=== PATIENT | female | born 1960 | race Caucasian/White ===

== ENCOUNTER 2017-09-12 09:08 | Emergency (ER) | payer BC ==
[~2017-09-12] VITALS: Ht 175.3 cm; Wt 104.1 kg
[~2017-09-12 09:08] MED LIST: MAGN400T6 PO; POTA20PA3 PO
[2017-09-12 09:31] LABS: BASOPHILS % (AUTO) 0.6 % (0-1); EOSINOPHILS # (AUTO) 0.2 X10'3 (0-0.9); EOSINOPHILS % (AUTO) 2.3 % (0-6); HEMATOCRIT 40.9 % (35.0-45.0); HEMOGLOBIN 13.9 g/dl (12.0-16.0); LYMPHOCYTES % (AUTO) 27.6 % (21-51); MEAN CORPUSCULAR HEMOGLOBIN 31.5 PG (27.0-31.0); MEAN CORPUSCULAR HGB CONC 34.1 % (33.0-36.5); MEAN CORPUSCULAR VOLUME 92.5 FL (78-98); MEAN PLATELET VOLUME 8.4 FL (7.4-10.4); MONOCYTES # (AUTO) 0.4 X10'3 (0-0.9); NEUTROPHILS # (AUTO) 4.6 X10'3 (1.8-7.7); NEUTROPHILS % (AUTO) 64.5 % (42-75); PLATELET COUNT 210 X10'3 (140-440); RED BLOOD COUNT 4.42 X10'6 (4.20-5.60); RED CELL DISTRIBUTION WIDTH 13.4 % (11.5-14.5); WHITE BLOOD COUNT 7.2 X10'3 (4.5-11.0)
[2017-09-12 09:41] LABS: PARTIAL THROMBOPLASTIN TIME 25 SECONDS (22-32)
[2017-09-12 09:46] LABS: ALANINE AMINOTRANSFERASE 38 U/L (12-78); ALBUMIN 3.6 G/DL (3.4-5.0); ALBUMIN/GLOBULIN RATIO 0.9 (1.1-1.5); ALKALINE PHOSPHATASE 63 IU/L (46-116); ANION GAP 13 (8-16); ASPARTATE AMINO TRANSFERASE 20 U/L (10-37); BILIRUBIN,TOTAL 0.7 MG/DL (0.1-1.0); BLOOD UREA NITROGEN 13 MG/DL (7-18); BUN/CREATININE RATIO 18.8 (6.6-38.0); CALCIUM 8.9 MG/DL (8.5-10.1); CHLORIDE 101 MMOL/L (99-107); CREATININE 0.69 MG/DL (0.40-0.90); GLUCOSE 103 MG/DL (70-104); POTASSIUM 3.1 MMOL/L (3.5-5.1); SODIUM 142 MMOL/L (135-145); TOTAL CARBON DIOXIDE 28.5 MMOL/L (24-32); TOTAL PROTEIN 7.5 G/DL (6.4-8.2); eGFR 88 ML/MIN
[2017-09-12] MEDS ORDERED: potassium Cl 20 mEq SR tablet PO STA (11:29)
[2017-09-12 11:53] VITALS: BP 165/90
== END 2017-09-12 11:54 | disposition home or self-care (01) ==
LOC: ER 09:09
DX: R07.9 Chest pain, unspecified (principal); M54.2 Cervicalgia; F41.9 Anxiety disorder, unspecified; R06.02 Shortness of breath; I10 Essential (primary) hypertension; Z90.710 Acquired absence of both cervix and uterus; Z96.651 Presence of right artificial knee joint; Z98.890 Other specified postprocedural states; Z88.2 Allergy status to sulfonamides; Z85.41 Personal history of malignant neoplasm of cervix uteri; Z79.899 Other long term (current) drug therapy
CPT/HCPCS: 36415; 71045; 80053; 84484; 85025; 85610; 85730; 93005; 99285

== ENCOUNTER 2019-05-13 14:39 | Emergency (ER) | payer BC ==
[~2019-05-13] VITALS: Ht 175.3 cm; Wt 105.0 kg
[~2019-05-13 14:39] MED LIST changes: +MAGN400T28 PO; -MAGN400T6 PO; -POTA20PA3 PO; +POTA20PA40 PO
--- NOTE | 2019-05-13 15:39 | NUR ---
TWO IV ACCESS ATTEMPTS, NO IV AT THIS TIME. LABS DRAWN AND PT TAKEN OUT TO CT VIA W/C BY TECH.
[2019-05-13 15:54] LABS: BASOPHILS # (AUTO) 0.1 X10'3 (0-0.2); BASOPHILS % (AUTO) 0.7 % (0-1); EOSINOPHILS # (AUTO) 0.1 X10'3 (0-0.9); EOSINOPHILS % (AUTO) 0.9 % (0-6); HEMATOCRIT 41.7 % (35.0-45.0); HEMOGLOBIN 14.3 g/dl (12.0-16.0); LYMPHOCYTES # (AUTO) 2.5 X10'3 (1.1-4.8); LYMPHOCYTES % (AUTO) 29.9 % (21-51); MEAN CORPUSCULAR HEMOGLOBIN 31.5 PG (27.0-31.0); MEAN CORPUSCULAR HGB CONC 34.3 g/dL (33.0-36.5); MEAN PLATELET VOLUME 8.5 FL (7.4-10.4); MONOCYTES # (AUTO) 0.6 X10'3 (0-0.9); MONOCYTES % (AUTO) 6.6 % (2-12); NEUTROPHILS # (AUTO) 5.3 X10'3 (1.8-7.7); NEUTROPHILS % (AUTO) 61.9 % (42-75); PLATELET COUNT 227 X10'3 (140-440); RED BLOOD COUNT 4.54 X10'6 (4.20-5.60); RED CELL DISTRIBUTION WIDTH 13.8 % (11.5-14.5); WHITE BLOOD COUNT 8.5 X10'3 (4.5-11.0)
[2019-05-13 15:59] LABS: PARTIAL THROMBOPLASTIN TIME 26 SECONDS (22-32)
[2019-05-13 16:01] LABS: ALANINE AMINOTRANSFERASE 54 U/L (12-78); ALBUMIN 3.8 G/DL (3.4-5.0); ALKALINE PHOSPHATASE 64 IU/L (46-116); ANION GAP 9 (8-16); ASPARTATE AMINO TRANSFERASE 30 U/L (10-37); BILIRUBIN,TOTAL 0.4 MG/DL (0.1-1.0); BLOOD UREA NITROGEN 10 MG/DL (7-18); BUN/CREATININE RATIO 15.6 (6.6-38.0); CHLORIDE 102 MMOL/L (99-107); CREATININE 0.64 MG/DL (0.40-0.90); GLUCOSE 96 MG/DL (70-104); LIPASE 109 U/L (73-393); POTASSIUM 3.2 MMOL/L (3.5-5.1); SODIUM 139 MMOL/L (135-145); TOTAL CARBON DIOXIDE 28.2 MMOL/L (24-32); TOTAL PROTEIN 7.6 G/DL (6.4-8.2); eGFR > 90 ML/MIN
[2019-05-13 16:11] VITALS: BP 135/81
[2019-05-13 16:21] LABS: CLARITY,URINE CLEAR (Clear); COLOR,URINE YELLOW (Yellow); GLUCOSE, URINE NEGATIVE (Neg); KETONES,URINE NEGATIVE (Neg); LEUKOCYTE ESTERASE ,URINE NEGATIVE (Neg); NITRITES, URINE NEGATIVE (Neg); OCCULT BLOOD,URINE NEGATIVE (Neg); PROTEIN,URINE NEGATIVE (Neg); UROBILINOGEN,URINE 0.2 E.U/dL (0.2-1.0)
--- NOTE | 2019-05-13 16:21 | NUR ---
PT BACK FROM CT. URINE SAMPLE COLLECTED. PROVIDER IN ROOM FOR RECTAL EXAM.
[2019-05-13 16:24] LABS: UA COLLECTION TYPE CLN CATCH MIDSTREAM
== END 2019-05-13 17:07 | disposition home or self-care (01) ==
LOC: ER 14:40
DX: K64.9 Unspecified hemorrhoids (principal); I10 Essential (primary) hypertension; F41.9 Anxiety disorder, unspecified; Z98.890 Other specified postprocedural states; Z90.710 Acquired absence of both cervix and uterus; Z60.2 Problems related to living alone; Z88.2 Allergy status to sulfonamides; Z79.899 Other long term (current) drug therapy
CPT/HCPCS: 36415; 74176; 80053; 81003; 83690; 85025; 85610; 85730; 99284

== ENCOUNTER 2021-11-01 09:53 | Day surgery (SDC) | payer OTHER ==
[2021-10-27 16:11] LABS: BASOPHILS # (AUTO) 0.1 X10'3 (0-0.2); BASOPHILS % (AUTO) 0.7 % (0-1); EOSINOPHILS # (AUTO) 0.2 X10'3 (0-0.9); EOSINOPHILS % (AUTO) 1.9 % (0-6); HEMATOCRIT 39.2 % (35.0-45.0); HEMOGLOBIN 13.3 g/dl (12.0-16.0); LYMPHOCYTES # (AUTO) 2.8 X10'3 (1.1-4.8); LYMPHOCYTES % (AUTO) 32.3 % (21-51); MEAN CORPUSCULAR HEMOGLOBIN 30.8 PG (27.0-31.0); MEAN CORPUSCULAR HGB CONC 33.9 g/dL (33.0-36.5); MEAN CORPUSCULAR VOLUME 90.8 FL (78-98); MEAN PLATELET VOLUME 8.8 FL (7.4-10.4); MONOCYTES # (AUTO) 0.6 X10'3 (0-0.9); MONOCYTES % (AUTO) 6.5 % (2-12); NEUTROPHILS # (AUTO) 5.1 X10'3 (1.8-7.7); NEUTROPHILS % (AUTO) 58.6 % (42-75); PLATELET COUNT 242 X10'3 (140-440); RED BLOOD COUNT 4.32 X10'6 (4.20-5.60); RED CELL DISTRIBUTION WIDTH 13.6 % (11.5-14.5); WHITE BLOOD COUNT 8.8 X10'3 (4.5-11.0)
[2021-10-27 16:24] LABS: APTT 25 SECONDS (22-32)
[2021-10-27 16:26] LABS: ALANINE AMINOTRANSFERASE 28 U/L (12-78); ALBUMIN 3.4 G/DL (3.4-5.0); ALBUMIN/GLOBULIN RATIO 0.9 (1.1-1.5); ALKALINE PHOSPHATASE 60 IU/L (46-116); ANION GAP 8 (8-16); ASPARTATE AMINO TRANSFERASE 15 U/L (10-37); BILIRUBIN,TOTAL 0.5 MG/DL (0.1-1.0); BLOOD UREA NITROGEN 12 MG/DL (7-18); BUN/CREATININE RATIO 18.8 (6.6-38.0); CALCIUM 8.9 MG/DL (8.5-10.1); CHLORIDE 102 MMOL/L (99-107); CREATININE 0.64 MG/DL (0.40-0.90); GLUCOSE 108 MG/DL (70-104); SODIUM 138 MMOL/L (135-145); TOTAL CARBON DIOXIDE 28.4 MMOL/L (24-32); TOTAL PROTEIN 7.2 G/DL (6.4-8.2); eGFR > 90 ML/MIN
[2021-11-01] VITALS (11 sets, daily range): BP systolic 96–128; BP diastolic 60–84
[~2021-11-01] VITALS: Ht 176.5 cm; Wt 109.0 kg
--- NOTE | 2021-11-01 08:14 | NUR ---
Left a message with Dr. Willson's MA to return call, regarding potassium draw. Lab contacted MD office on 10/27/21. Waiting for return call.
[~2021-11-01 09:53] MED LIST changes: -MAGN400T28 PO; +MAGN400T56 PO
[2021-11-01] MEDS ORDERED: diphenhydrAMINE 25mg capsule PO PRN (10:30)
[2021-11-01] MEDS ORDERED: LORazepam 0.5 MG tablet PO PRN (10:30)
[2021-11-01] MEDS ORDERED: normal saline 1,000 ML IV SCH (10:30)
[2021-11-01] MEDS ORDERED: nitroGLYCERIN 0.4mg SUBLingual tab SL PRN ×2 (10:30→16:50)
[2021-11-01] MEDS ORDERED: ATEN1TAB3 PO (10:35)
[2021-11-01] MEDS ORDERED: ATOR10TA70 PO (10:35)
[2021-11-01] MEDS ORDERED: ALBU8HFA (10:35)
[2021-11-01] MEDS ORDERED: BUDE10.2 PO (10:35)
[2021-11-01] MEDS ORDERED: POTA-207 PO (10:35)
[2021-11-01] MEDS ORDERED: SERT-433 PO (10:35)
[2021-11-01] MEDS ORDERED: Omega 3 PO (10:37)
[2021-11-01] MEDS ORDERED: ASPI-1071 PO (10:37)
[2021-11-01 11:28] LABS: ALANINE AMINOTRANSFERASE 28 U/L (12-78); ALBUMIN 3.3 G/DL (3.4-5.0); ALBUMIN/GLOBULIN RATIO 0.9 (1.1-1.5); ALKALINE PHOSPHATASE 58 IU/L (46-116); ANION GAP 10 (8-16); ASPARTATE AMINO TRANSFERASE 17 U/L (10-37); BILIRUBIN,TOTAL 0.6 MG/DL (0.1-1.0); BLOOD UREA NITROGEN 10 MG/DL (7-18); BUN/CREATININE RATIO 17.2 (6.6-38.0); CALCIUM 8.7 MG/DL (8.5-10.1); CHLORIDE 103 MMOL/L (99-107); CREATININE 0.58 MG/DL (0.40-0.90); GLUCOSE 98 MG/DL (70-104); POTASSIUM 3.2 MMOL/L (3.5-5.1); SODIUM 140 MMOL/L (135-145); TOTAL CARBON DIOXIDE 26.8 MMOL/L (24-32); eGFR > 90 ML/MIN
[2021-11-01] MEDS ORDERED: potassium CL 10mEq/100ml bag 100 ML IV PRN (11:45)
[2021-11-01] MEDS ORDERED: magnesium 2GM in 50ml NS 50 ML IV PRN (11:45)
[2021-11-01] MEDS ORDERED: POTASSIUM BICARB 20meq eff tab 20 MEQ TABLET.EFF PO PRN (11:45)
[2021-11-01] MEDS ORDERED: magnesium Cl slow-release 64mg tablet PO PRN (11:45)
[2021-11-01] MEDS ORDERED: magnesium 4gm in 100ml NS 100 ML IV PRN (11:45)
[2021-11-01] MEDS: POTASSIUM BICARB 20meq eff tab 20 MEQ TABLET.EFF PO PRN ×2 (12:48→16:55)
[2021-11-01] MEDS ORDERED: fentaNYL/PF 50MCG/1 ML 2ML syringe ONE (12:59)
[2021-11-01] MEDS ORDERED: midazolam 1 mg/ML 2ml injection ONE (12:59)
[2021-11-01] MEDS ORDERED: iohexol 350MG/ML 100ml bottle IV ONE ×2 (12:59→13:36)
[2021-11-01] MEDS ORDERED: LIDOcaine 1% 30ml preserv. free vial ONE (13:00)
[2021-11-01] MEDS ORDERED: HYDROmorphone 1 mg/ml syringe ONE (13:56)
--- NOTE | 2021-11-01 16:20 | NUR ---
Pt ate 100% of lunch tray. 250ml oral fluid intake. Pt's fluid infusing as ordered.
[2021-11-01 16:42] LABS: MAGNESIUM 1.6 MG/DL (1.5-2.4)
[2021-11-01] MEDS ORDERED: proCHLORperazine 10 MG/2 ml inj IV PRN (16:50)
[2021-11-01] MEDS ORDERED: ondansetron/PF 4mg/2ml inj IV PRN (16:50)
[2021-11-01] MEDS ORDERED: HYDROmorphone 1 mg/ml syringe IV PRN (16:50)
[2021-11-01] MEDS ORDERED: OXAZEpam 15mg capsule PO PRN (16:50)
[2021-11-01] MEDS ORDERED: HYDROcodone/acetaminophen 10/325mg tab PO PRN (16:50)
[2021-11-01] MEDS ORDERED: normal saline 1000ml 1,000 ML IV SCH (16:50)
[2021-11-01] MEDS ORDERED: HYDROcodone/acetaminophen 5mg/325mg tablet PO PRN (16:50)
--- NOTE | 2021-11-01 17:23 | NUR ---
Problems reprioritized. Patient report given, questions answered & plan of care reviewed with Kiki SAMANIEGO.
--- NOTE | 2021-11-01 19:15 | NUR ---
Dressing was changed and patient was sat up. 10 minutes later the dressing was 100% saturated with blood. Removed dressing, applied manual pressure for 3 mins. Bleeding stopped and reapplied new dressing.
[2021-11-01] MEDS ORDERED: K and/or MAG REPLACEMENT MC SCH (20:00)
== END 2021-11-01 20:00 | disposition home or self-care (01) ==
LOC: SSTAY O 09:53
PROVIDERS: ATTEND Internal Medicine Cardiovascular Disease
DX: R94.39 Abnormal result of other cardiovascular function study (principal); I25.10 Atherosclerotic heart disease of native coronary artery without angina pectoris; I10 Essential (primary) hypertension; J44.9 Chronic obstructive pulmonary disease, unspecified; E78.5 Hyperlipidemia, unspecified; E87.6 Hypokalemia; Z72.89 Other problems related to lifestyle; F17.210 Nicotine dependence, cigarettes, uncomplicated; Z79.899 Other long term (current) drug therapy; Z79.01 Long term (current) use of anticoagulants; Z88.2 Allergy status to sulfonamides; Z91.040 Latex allergy status; Z90.710 Acquired absence of both cervix and uterus; Z98.890 Other specified postprocedural states; Z85.43 Personal history of malignant neoplasm of ovary
CPT/HCPCS: 36415; 71046; 80053; 83735; 85025; 85610; 85730; 93005; 93458; 99152; 99153; C1760; C1769; J1170; J1644; J2250; J3010; J3490; J7030; Q0163; Q9967; A4620; A6258; A6402

== ENCOUNTER → 2022-08-21 | Outpatient (CLI) | payer OTHER ==
[~2022-08-21] MED LIST changes: +ALBU8HFA; +ASPI-1071 PO; +ATEN1TAB3 PO; +ATOR10TA70 PO; +BUDE10.2 PO; +CRANBERRY; +ECHINACEA; +LUTE1CAP5 PO; -MAGN400T56 PO; +OMEP40CA21 PO; +Omega 3 PO; +POTA-207 PO; -POTA20PA40 PO; +PROBIOTIC; +SERT-433 PO; +TUMERIC; +VITAMIN C; +VITAMIN D 3; +[UNRECOGNIZED DRUG - OTHER]
[2022-08-21 14:53] LABS: BASOPHILS # (AUTO) 0.1 X10'3 (0-0.2); BASOPHILS % (AUTO) 0.7 % (0-1); EOSINOPHILS # (AUTO) 0.2 X10'3 (0-0.9); EOSINOPHILS % (AUTO) 1.9 % (0-6); LYMPHOCYTES % (AUTO) 36.2 % (21-51); MEAN CORPUSCULAR HGB CONC 34.1 g/dL (33.0-36.5); MEAN PLATELET VOLUME 8.2 FL (7.4-10.4); MONOCYTES # (AUTO) 0.5 X10'3 (0-0.9); MONOCYTES % (AUTO) 6.5 % (2-12); NEUTROPHILS # (AUTO) 4.5 X10'3 (1.8-7.7); NEUTROPHILS % (AUTO) 54.7 % (42-75); PRE OP HEMATOCRIT 40.5 % (35.0-45.0); PRE OP HEMOGLOBIN 13.8 g/dL (12.0-16.0); PRE OP PLATELET COUNT 226 X10'3 (140-440); RED BLOOD COUNT 4.31 X10'6 (4.20-5.60); RED CELL DISTRIBUTION WIDTH 13.2 % (11.5-14.5)
[2022-08-21 15:08] LABS: ALBUMIN 3.3 G/DL (3.4-5.0); ALBUMIN/GLOBULIN RATIO 0.9 (1.1-1.5); ALKALINE PHOSPHATASE 64 IU/L (46-116); BLOOD UREA NITROGEN 17 MG/DL (7-18); BUN/CREATININE RATIO 33.3 (10.0-20.0); CALCIUM 8.9 MG/DL (8.5-10.1); CHLORIDE 102 MMOL/L (99-107); CREATININE 0.51 MG/DL (0.40-0.90); PRE OP ALT 22 U/L (30-65); PRE OP ANION GAP 8 (8-16); PRE OP AST 17 U/L (10-37); PRE OP BILIRUB, TOTAL 0.3 MG/DL (0.0-1.0); PRE OP GLUCOSE 96 MG/DL (70-104); PRE OP POTASSIUM 3.5 MMOL/L (3.4-5.1); PRE OP SODIUM 139 MMOL/L (135-145); TOTAL CARBON DIOXIDE 28.8 MMOL/L (24-32); TOTAL PROTEIN 7.1 G/DL (6.4-8.2); eGFR > 90 ML/MIN
== END | disposition home or self-care (01) ==
LOC: LAB 13:39 → EDSTATUS 08-29 08:30
PROVIDERS: ATTEND Orthopaedic Surgery
DX: Z01.812 Encounter for preprocedural laboratory examination (principal); M17.11 Unilateral primary osteoarthritis, right knee; Z96.651 Presence of right artificial knee joint
CPT/HCPCS: 36415; 80053; 85025; 87081